=== PATIENT | female | born 1985 ===

== ENCOUNTER 2016-10-22 19:43 | Emergency (ER) | payer OTHER ==
[2016-10-22 20:21] VITALS: BP 102/67; PULSE 91; RESP 17; TEMP 98.4; O2SAT 99
--- NOTE | 2016-10-22 21:09 | ED PDOC ---
HPI: General Adult Time Seen by Provider: 10/22/16 20:23 Chief Complaint (Nursing): ENT Problem Chief Complaint (Provider): ENT Problem History Per: Patient History/Exam Limitations: no limitations Onset/Duration Of Symptoms: Days (x4 days) Current Symptoms Are (Timing): Still Present Additional Complaint(s): 33 y/o female presents to the emergency department with a complaint of a sore throat and right ear pain x 4 days. She denies fever, chills or hearing loss. No cough or congestion. She denies any recent travel or sick contacts. Past Medical History Reviewed: Historical Data, Nursing Documentation, Vital Signs Vital Signs: Last Vital Signs Temp 98.4 F 10/22/16 20:17 Pulse 91 H 10/22/16 20:17 Resp 17 10/22/16 20:17 BP 102/67 10/22/16 20:17 Pulse Ox 99 10/22/16 21:16 - Medical History PMH: No Chronic Diseases Other PMH: Heart murmur - Surgical History Surgical History: (1) - Family History Family History: States: No Known Family Hx, Unknown Family Hx - Living Arrangements Living Arrangements: With Family - Social History Current smoker - smoking cessation education provided: No Alcohol: Occasional Drugs: Denies - Home Medications Home Medications: Ambulatory Orders Medication Instructions Recorded Azithromycin [Zithromax] 250 mg PO DAILY #4 tab 10/22/16 Ibuprofen [Motrin] 600 mg PO Q6 PRN #15 tab 10/22/16 Neomycin/Polymyxin/Hydrocort 4 drop TOP BID #1 bottle 10/22/16 [Cortisporin Otic Soln] - Allergies Allergies/Adverse Reactions: Allergies Allergy/AdvReac Type Severity Reaction Status Date / Time shrimp Allergy Intermediate swelling Verified 10/22/16 20:21 and rash Review of Systems ROS Statement: Except As Marked, All Systems Reviewed And Found Negative Constitutional: Negative for: Fever ENT: Positive for: Ear Pain (Right), Throat Pain Cardiovascular: Negative for: Chest Pain Respiratory: Negative for: Cough Gastrointestinal: Negative for: Nausea, Vomiting Neurological: Negative for: Headache, Dizziness Physical Exam - Reviewed Nursing Documentation Reviewed: Yes Vital Signs Reviewed: Yes - Physical Exam Appears: Positive for: Well, Non-toxic, No Acute Distress Head Exam: Positive for: ATRAUMATIC, NORMOCEPHALIC Skin: Positive for: Normal Color, Warm, Dry ENT: Positive for: TM Is/Are (Right TM is bulging with erythema and obscured landmarks. Left is normal. Right AC is erythematous and edematous with no exudate), Pharyngeal Erythema, Tonsillar Swelling. Negative for: Nasal Congestion, Tonsillar Exudate Neck: Positive for: Painless ROM Cardiovascular/Chest: Positive for: Regular Rate, Rhythm. Negative for: Murmur Respiratory: Positive for: Normal Breath Sounds. Negative for: Accessory Muscle Use, Respiratory Distress Lymphatic: Positive for: Adenopathy (b/l anterior cervical lymphadenopathy.). Negative for: Normal Exam Neurologic/Psych: Positive for: Alert, Oriented - Laboratory Results Urine POC: Negative - ECG O2 Sat by Pulse Oximetry: 99 (RA) Pulse Ox Interpretation: Normal Medical Decision Making Medical Decision Making: Time: 20:30 Initial Impression: Otitis and pharyngitis Initial Plan: --Urine --Zithromax 500 mg PO --Motrin 600 mg PO --Throat Culture Stat Patient given prescriptions for Zithromax and Motrin. She was advised to drink plenty of fluids and get plenty of rest. Patient was advised to follow-up with primary doctor in 2-3 days. Scribe Attestation: Documented by Mayda Vines acting as a scribe for So Moreno PA-C. Provider Scribe Attestation: All medical record entries made by the Scribe were at my direction and personally dictated by me. I have reviewed the chart and agree that the record accurately reflects my personal performance of the history, physical exam, medical decision making, and the department course for this patient. I have also personally directed, reviewed, and agree with the discharge instructions and disposition. Disposition - Clinical Impression Clinical Impression: Otitis media, Otitis externa, Pharyngitis - Patient ED Disposition Is Patient to be Admitted: No Counseled Patient/Family Regarding: Studies Performed, Diagnosis, Need For Followup, Rx Given - Disposition Referrals: [facility] [Outside] Disposition Time: 21:55 Condition: STABLE Additional Instructions: Take rx meds as directed. Rest and drink plenty of fluids. Follow up in 2-3 days with clinic or with primary care doctor. Prescriptions: Azithromycin [Zithromax] 250 mg PO DAILY #4 tab Ibuprofen [Motrin] 600 mg PO Q6 PRN #15 tab PRN Reason: Pain, Moderate (4-7) Neomycin/Polymyxin/Hydrocort [Cortisporin Otic Soln] 4 drop TOP BID #1 bottle Instructions: Otitis Media (ED), Otitis Media in Children (ED), Otitis Externa (ED), Pharyngitis (ED)
== END 2016-10-22 22:14 | disposition home or self-care (01) ==
LOC: H.ER 19:43
DX: J02.9 Acute pharyngitis, unspecified (principal); H66.90 Otitis media, unspecified, unspecified ear; H60.90 Unspecified otitis externa, unspecified ear